=== PATIENT | female | born 1955 ===

== ENCOUNTER 2023-08-06 10:40 | Inpatient (IN) | payer OTHER ==
[2023-08-06] MEDS ORDERED: EPINEPHrine/PF 1 MG/1 ML (1:1,000) AMPULE ONE (10:50)
[2023-08-06] MEDS ORDERED: DEXAMETHASONE SOD PHOSPHATE 10 MG/1 ML VIAL ONE (10:50)
[2023-08-06] MEDS ORDERED: FAMOTIDINE 20 MG/50 ML IVPB 20 MG/50 ML MG IVPB ONE (10:53)
[2023-08-06] MEDS: EPINEPHrine 1:1,000 1,000 MCG in SODIUM CHLORIDE 249 ML IVPB SCH (11:00)
[2023-08-06] MEDS ORDERED: VANCOMYCIN 1 GRAM (PRE-DOCKED) 1,000 MG/250 ML BAG IVPB ONE (11:08)
[2023-08-06 11:16] LABS: HEMATOCRIT 34.1 % (32.4-45.2); HEMOGLOBIN 11.1 GM/dL (10.7-15.3); MCH 27.9 pg (25.7-33.7); MCHC 32.6 g/dl (32.0-36.0); MEAN CELL VOLUME 85.5 fl (80-96); MEAN PLT VOLUME 8.3 fl (7.5-11.1); PLATELET COUNT 313 10^3/uL (134-434); RBC 3.99 M/mm3 (3.60-5.2); RDW 15.6 % (11.6-15.6)
[2023-08-06 11:19] LABS: WHITE BLOOD COUNT 36.8 K/mm3 (4.0-10.0)
[2023-08-06 11:20] LABS: VENOUS BASE EXCESS -3.6 mmol/L (-2-2); VENOUS O2 SATURATION 67.5 % (70-80); VENOUS PCO2 34.4 mmHg (38-52); VENOUS PH 7.395 (7.310-7.410)
[2023-08-06] MEDS ORDERED: NOREPINEPHRINE 0.9 % NACL 8 MG/250 ML BAG IVPB ONE (11:20)
[2023-08-06 11:22] LABS: INR 1.74 (0.83-1.09); PROTHROMBIN TIME (PATIENT) 19.4 SEC (9.7-13.0)
[2023-08-06] MEDS: VANCOMYCIN 1,000 MG in DEXTROSE 5%-WATER - 250 ML IVPB ONE (11:29)
[2023-08-06 11:34] LABS: CHLORIDE 101 mmol/L (98-107); POTASSIUM 3.5 mmol/L (3.5-5.1); SODIUM 131 mmol/L (136-145)
[2023-08-06 11:37] LABS: CALCIUM 8.6 mg/dL (8.5-10.1)
[2023-08-06 11:38] LABS: ALBUMIN 1.7 g/dl (3.4-5.0); ANION GAP 9 mmol/L (4-13); BLOOD UREA NITROGEN 25.6 mg/dL (7-18); CO2 22 mmol/L (21-32); GLUCOSE,RANDOM 93 mg/dL (74-106)
[2023-08-06 11:41] LABS: CREATININE 1.5 mg/dL (0.55-1.3); SGOT/AST 54 U/L (15-37); SGPT/ALT 16 U/L (13-61)
[2023-08-06 11:42] LABS: TOT PROT 5.7 g/dl (6.4-8.2)
[2023-08-06 11:43] LABS: EPI CELLS 2 /uL (0-25.1); HYALINE CASTS 0 /uL (0-3.1); PH,URINE 6.5 (5.0-8.0); URINE APPEARANCE TURBID; URINE BACTERIA 606 /uL (0-1359); URINE BILIRUBIN NEGATIVE (NEGATIVE); URINE COLOR YELLOW; URINE GLUCOSE (UA) 3+ (NEGATIVE); URINE KETONE NEGATIVE (NEGATIVE); URINE LEUK ESTERASE 2+ (NEGATIVE); URINE NITRITE NEGATIVE (NEGATIVE); URINE PROTEIN 1+ (NEGATIVE); URINE UROBILINOGEN 0.2 mg/dL (0.2-1.0); URINE WBC 3223 /uL (0-25.8)
[2023-08-06 11:43] LABS: BILIRUBIN,TOTAL 0.6 mg/dL (0.2-1)
[2023-08-06 11:44] LABS: ALK PHOS 149 U/L (45-117)
[2023-08-06 12:03] LABS: LACTIC ACID 5.2 mmol/L (0.4-2.0)
[2023-08-06] MEDS: LACTATED RINGERS SOLUTION 1000 ML INFUS.BAG IV ONE (12:08)
[2023-08-06] MEDS: CEFEPIME HCL 1 GM VIAL (RESTRICTED TO ID) IVPB ONE (12:09)
[2023-08-06] MEDS ORDERED: CLINDAMYCIN 600MG PREMIX IVPB 600 MG/50 ML BAG IVPB ONE (12:29)
[2023-08-06] MEDS ORDERED: CEFEPIME 1 GM/100 ML BAG IVPB ONE (12:29)
[2023-08-06] MEDS ORDERED: ACETAMINOPHEN INJECTION 100 ML IVPB ONE (12:29)
[2023-08-06] MEDS ORDERED: ASPIRIN 300 MG SUPP.RECT RC ONE (12:30)
[2023-08-06] MEDS: CLINDAMYCIN 600MG PREMIX IVPB 600 MG/50 ML BAG IVPB ONE (12:48)
[2023-08-06] MEDS: ACETAMINOPHEN 1000 MG/100 ML BAG IVPB ONE (12:48)
[2023-08-06] MEDS: CEFEPIME 1 GM in DEXTROSE 5%-WATER - 100 ML IVPB ONE (12:48)
[2023-08-06] MEDS ORDERED: EPINEPHrine 1:10,000 (P-F SYR) 1 MG/10 ML DISP.SYRIN ONE ×2 (13:00→13:04)
[2023-08-06 13:21] LABS: PLATELET ESTIMATE ADEQUATE
[2023-08-06] MEDS: ASPIRIN 300 MG SUPP.RECT PR ONE (13:34)
[2023-08-06 13:58] LABS: URINE RBC 469 /uL (0-23.9); YEAST PRESENT (NEGATIVE)
[2023-08-06 14:09] LABS: LACTIC ACID 5.7 mmol/L (0.4-2.0)
[2023-08-06] MEDS: NOREPINEPHRINE BITARTRATE/D5W 8 MG/250 ML BAG IVPB SCH (14:15)
[2023-08-06] MEDS ORDERED: VASopressin 20 UNITS/ML VIAL IV ONE ×2 (15:09)
[2023-08-06] MEDS: SODIUM CHLORIDE 1,000 ML IV SCH (15:30)
[2023-08-06] MEDS: VASopressin 40 UNITS/100 ML BAG IV SCH (15:30)
[2023-08-06] MEDS: NOREPINEPHRINE BITARTRATE 4,000 MCG in DEXTROSE 5%-WATER - 496 ML IV SCH (15:39)
[2023-08-06 16:00] LABS: LACTIC ACID 4.4 mmol/L (0.4-2.0)
[2023-08-06] MEDS: INSULIN ASPART SLIDING SCALE (NOVOLOG) 1 VIAL SQ SCH (17:06)
[2023-08-06] MEDS ORDERED: PIPERACILLIN/TAZOB 2.25 GM 2.25 GM in DEXTROSE 5%-WATER - 50 ML IVPB SCH (18:45)
[2023-08-06] MEDS: TIOTROPIUM BROMIDE 2.5 MCG (SPIRIVA) RESPIMAT INHALER IH SCH (19:17)
[2023-08-06] MEDS: FLUDROCORTISONE ACETATE 0.1 MG TABLET (FP) PO SCH (19:17)
[2023-08-06] MEDS: PIPERACILLIN/TAZOB 2.25 GM 2.25 GM in DEXTROSE 5%-WATER - 50 ML IVPB SCH (19:20)
[2023-08-06 22:09] LABS: LACTIC ACID 2.3 mmol/L (0.4-2.0)
[2023-08-06] MEDS: CEFEPIME 1 GM in DEXTROSE 5%-WATER 100 ML IVPB SCH (22:13)
[2023-08-06] MEDS: HYDROCORTISONE SOD SUCCINATE 100 MG/2 ML VIAL IVPUSH SCH (22:13)
[2023-08-06] MEDS: MUPIROCIN 2% TOPICAL OINTMENT FOR DECOLONIZATION NS SCH (22:13)
[2023-08-06] MEDS: CHLORHEXIDINE GLUCONATE 4% CLEANSER FOR DECOLONIZATION TP SCH (22:14)
[2023-08-06] MEDS: HEPARIN NA (PORCINE) 5,000 UNITS/ML 1ML VIAL SQ SCH (22:14)
[2023-08-06] MEDS: ATORVASTATIN CA 80 MG TABLET (FP) PO SCH (22:14)
[2023-08-06] MEDS: BUDESONIDE/FORMETEROL FUMARATE 160/4.5 mcg INHALER IH SCH (22:14)
[2023-08-06] MEDS: TICAGRELOR 60 MG TABLET PO SCH (22:14)
[2023-08-06] MEDS: VANCOMYCIN/WATER FOR INJ (PEG) 1,000 MG/200 ML BAG IVPB SCH (22:24)
[2023-08-07 06:42] LABS: HEMATOCRIT 29.1 % (32.4-45.2); HEMOGLOBIN 9.4 GM/dL (10.7-15.3); MCH 27.4 pg (25.7-33.7); MCHC 32.3 g/dl (32.0-36.0); MEAN CELL VOLUME 84.6 fl (80-96); MEAN PLT VOLUME 8.8 fl (7.5-11.1); PLATELET COUNT 250 10^3/uL (134-434); RBC 3.44 M/mm3 (3.60-5.2); RDW 15.5 % (11.6-15.6)
[2023-08-07 06:53] LABS: INR 1.83 (0.83-1.09); PROTHROMBIN TIME (PATIENT) 20.3 SEC (9.7-13.0)
[2023-08-07 06:56] LABS: ACTIVATED PTT 32.7 SECONDS (25.2-36.5)
[2023-08-07 06:57] LABS: POTASSIUM 3.8 mmol/L (3.5-5.1)
[2023-08-07 06:59] LABS: ALBUMIN 1.6 g/dl (3.4-5.0); BLOOD UREA NITROGEN 31.8 mg/dL (7-18); CALCIUM 7.8 mg/dL (8.5-10.1)
[2023-08-07 07:00] LABS: MAGNESIUM 1.3 mg/dL (1.8-2.4)
[2023-08-07 07:02] LABS: CREATININE 1.6 mg/dL (0.55-1.3); PHOSPHOROUS 3.4 mg/dL (2.5-4.9)
[2023-08-07 07:04] LABS: TOT PROT 5.2 g/dl (6.4-8.2); WHITE BLOOD COUNT 54.1 K/mm3 (4.0-10.0)
[2023-08-07 07:09] LABS: BILIRUBIN,TOTAL 0.5 mg/dL (0.2-1)
[2023-08-07] MEDS: MAGNESIUM SULFATE IN WATER 2 GM/50 ML IVPB IVPB ONE (07:40)
[2023-08-07] MEDS: PANTOPRAZOLE SODIUM 40 MG VIAL IVPUSH SCH (09:51)
[2023-08-07] MEDS ORDERED: VANCOMYCIN 1,000 MG in DEXTROSE 5%-WATER - 250 ML IVPB SCH (10:00)
[2023-08-07] MEDS ORDERED: VANCOMYCIN/WATER FOR INJ (PEG) 1,000 MG/200 ML BAG IVPB SCH (11:00)
[2023-08-07] MEDS: ENOXAPARIN NA (PORCINE) 100 MG/1 ML DISP.SYRIN SQ SCH (12:37)
[2023-08-07] MEDS: MEROPENEM 1 GM in DEXTROSE 5%-WATER 100 ML IVPB SCH (12:38)
[2023-08-07] MEDS: HYDROCORTISONE SOD SUCCINATE 100 MG/2 ML VIAL IVPUSH SCH (12:38)
[2023-08-07] MEDS: ACETAMINOPHEN 1000 MG/100 ML BAG IVPB PRN (13:48)
[2023-08-07] MEDS: LACTATED RINGERS SOLUTION 1000 ML INFUS.BAG IV ONE (19:30)
[2023-08-08 06:01] LABS: HEMATOCRIT 28.6 % (32.4-45.2); HEMOGLOBIN 9.2 GM/dL (10.7-15.3); MCH 26.9 pg (25.7-33.7); MCHC 32.1 g/dl (32.0-36.0); MEAN CELL VOLUME 83.9 fl (80-96); MEAN PLT VOLUME 8.9 fl (7.5-11.1); PLATELET COUNT 215 10^3/uL (134-434); RBC 3.41 M/mm3 (3.60-5.2); RDW 15.2 % (11.6-15.6)
[2023-08-08 06:13] LABS: WHITE BLOOD COUNT 44.4 K/mm3 (4.0-10.0)
[2023-08-08 06:18] LABS: POTASSIUM 3.4 mmol/L (3.5-5.1)
[2023-08-08 06:22] LABS: ALBUMIN 1.7 g/dl (3.4-5.0); CALCIUM 7.7 mg/dL (8.5-10.1)
[2023-08-08 06:23] LABS: BLOOD UREA NITROGEN 37.3 mg/dL (7-18); MAGNESIUM 1.9 mg/dL (1.8-2.4)
[2023-08-08 06:26] LABS: CREATININE 1.4 mg/dL (0.55-1.3)
[2023-08-08 06:28] LABS: BILIRUBIN,TOTAL 0.5 mg/dL (0.2-1); TOT PROT 5.4 g/dl (6.4-8.2)
[2023-08-08] MEDS: POTASSIUM CHLORIDE TABS 20 MEQ TABLET.ER (FP) PO ONE (09:42)
[2023-08-08] MEDS: NIFEdipine E.R 60 MG TABLET PO SCH (09:46)
[2023-08-08] MEDS: oxyCODONE HCL 5 MG TABLET PO PRN (12:07)
[2023-08-08] MEDS: METOPROLOL TARTRATE 25 MG TABLET (FP) PO SCH (13:35)
[2023-08-08] MEDS ORDERED: INSULIN (NOVOLOG) ASPART 100 UNITS/ML 10ML VIAL ONE (17:23)
[2023-08-09 06:51] LABS: HEMATOCRIT 30.7 % (32.4-45.2); MCH 27.7 pg (25.7-33.7); MCHC 32.7 g/dl (32.0-36.0); MEAN CELL VOLUME 84.7 fl (80-96); MEAN PLT VOLUME 9.2 fl (7.5-11.1); PLATELET COUNT 221 10^3/uL (134-434); RBC 3.62 M/mm3 (3.60-5.2); RDW 15.3 % (11.6-15.6)
[2023-08-09 06:52] LABS: POTASSIUM 3.1 mmol/L (3.5-5.1)
[2023-08-09 06:53] LABS: ALBUMIN 1.9 g/dl (3.4-5.0); CALCIUM 8.1 mg/dL (8.5-10.1)
[2023-08-09 06:54] LABS: BLOOD UREA NITROGEN 32.6 mg/dL (7-18); MAGNESIUM 1.9 mg/dL (1.8-2.4)
[2023-08-09 06:57] LABS: PHOSPHOROUS 1.8 mg/dL (2.5-4.9)
[2023-08-09 06:58] LABS: BILIRUBIN,TOTAL 0.5 mg/dL (0.2-1); TOT PROT 5.6 g/dl (6.4-8.2)
[2023-08-09 07:00] LABS: CHOLESTEROL 93 mg/dL (50-200)
[2023-08-09 07:02] LABS: LDL CHOLESTEROL (ONLY SJRH) 47 mg/dL (5-100)
[2023-08-09 07:04] LABS: HDL CHOLESTEROL 16 mg/dL (40-60)
[2023-08-09 07:34] LABS: WHITE BLOOD COUNT 38.5 K/mm3 (4.0-10.0)
[2023-08-09] MEDS: NAPH,MB-DB/K PH,MBDB POWDER PACKET PO ONE (08:37)
[2023-08-09] MEDS: POTASSIUM CHLORIDE ORAL LIQUID 20 MEQ/15 ML PO ONE (08:37)
[2023-08-09] MEDS: METOPROLOL TARTRATE 50 MG TABLET (FP) PO SCH (09:43)
[2023-08-09] MEDS: dilTIAZem HCL 25 MG/5 ML - 5 ML VIAL IVPUSH ONE (11:58)
[2023-08-09 15:18] VITALS: BMI 32.1
[2023-08-09] MEDS: AMINO ACIDS/PROTEIN HYDROLYS 30 ML LIQUID.PKT PO SCH (17:40)
[2023-08-09] MEDS: ACETAMINOPHEN 325 MG TABLET (FP) PO PRN (20:45)
[2023-08-10] MEDS: METOPROLOL TARTRATE 50 MG TABLET (FP) PO SCH (09:53)
[2023-08-10] MEDS: ASCORBIC ACID 500 MG TABLET (FP) PO SCH (09:53)
[2023-08-10] MEDS: MULTIVITAMINS (DAILY MVI) TABLET (FP) PO SCH (09:54)
[2023-08-10] MEDS: ZINC SULFATE 220 MG CAPSULE (FP) PO SCH (09:54)
[2023-08-10] MEDS: LOSARTAN POTASSIUM 50 MG TABLET PO SCH (14:26)
[2023-08-10] MEDS: POTASSIUM CHLORIDE ORAL LIQUID 20 MEQ/15 ML PO ONE (14:26)
[2023-08-10] MEDS: hydrALAZINE HCL 25 MG TABLET (FP) PO SCH (14:26)
[2023-08-11 07:19] LABS: POTASSIUM 3.2 mmol/L (3.5-5.1)
[2023-08-11 07:23] LABS: ALBUMIN 1.8 g/dl (3.4-5.0); BLOOD UREA NITROGEN 29.1 mg/dL (7-18); CALCIUM 7.8 mg/dL (8.5-10.1); MAGNESIUM 1.5 mg/dL (1.8-2.4)
[2023-08-11 07:26] LABS: CREATININE 0.8 mg/dL (0.55-1.3); HEMATOCRIT 29.8 % (32.4-45.2); HEMOGLOBIN 9.7 GM/dL (10.7-15.3); MCH 27.6 pg (25.7-33.7); MCHC 32.3 g/dl (32.0-36.0); MEAN CELL VOLUME 85.4 fl (80-96); MEAN PLT VOLUME 10.2 fl (7.5-11.1); PLATELET COUNT 216 10^3/uL (134-434); RDW 15.9 % (11.6-15.6); WHITE BLOOD COUNT 19.3 K/mm3 (4.0-10.0)
[2023-08-11 07:28] LABS: BILIRUBIN,TOTAL 0.9 mg/dL (0.2-1); TOT PROT 5.2 g/dl (6.4-8.2)
[2023-08-11] MEDS: MAGNESIUM SULF 50% (8.12 MEQ/2 ML-1 GM VIAL) IVPB ONE (08:59)
[2023-08-11] MEDS: POTASSIUM CHLORIDE TABS 20 MEQ TABLET.ER (FP) PO ONE (08:59)
[2023-08-11] MEDS: POTASSIUM CHLORIDE ORAL LIQUID 20 MEQ/15 ML PO ONE (12:00)
[2023-08-11] MEDS: KCL 10 MEQ IVPB 10 MEQ/100 ML INFUS.BAG IVPB SCH (12:30)
[2023-08-11] MEDS: hydrALAZINE HCL 20 MG/ML VIAL IVPUSH PRN (14:29)
[2023-08-11] MEDS ORDERED: METOPROLOL TARTRATE 5 MG/5 ML VIAL ONE (14:54)
[2023-08-11] MEDS: METOPROLOL TARTRATE 5 MG/5 ML VIAL IVPUSH PRN (14:58)
[2023-08-11] MEDS: FUROSEMIDE 40 MG/4 ML INJECTABLE VIAL IVPUSH ONE (16:38)
[2023-08-11] MEDS: ATORVASTATIN CA 80 MG TABLET (FP) PO SCH (21:18)
[2023-08-11] MEDS: hydrALAZINE HCL 25 MG TABLET (FP) PO SCH (21:18)
[2023-08-11] MEDS: oxyCODONE HCL 5 MG TABLET PO PRN (21:18)
[2023-08-11] MEDS: TICAGRELOR 60 MG TABLET PO SCH (21:20)
[2023-08-11] MEDS: ACETAMINOPHEN 325 MG TABLET (FP) PO PRN (21:20)
[2023-08-11] MEDS: LOSARTAN POTASSIUM 50 MG TABLET PO SCH (21:22)
[2023-08-11] MEDS: METOPROLOL TARTRATE 50 MG TABLET (FP) PO SCH (21:22)
[2023-08-11] MEDS: MEROPENEM 1 GM in DEXTROSE 5%-WATER 100 ML IVPB SCH (21:23)
[2023-08-11] MEDS: ENOXAPARIN NA (PORCINE) 100 MG/1 ML DISP.SYRIN SQ SCH (21:23)
[2023-08-11] MEDS: ONDANSETRON 4 MG/2 ML VIAL IVPUSH ONE (21:39)
[2023-08-12] MEDS: INSULIN ASPART SLIDING SCALE (NOVOLOG) 1 VIAL SQ SCH (01:07)
[2023-08-12] MEDS: BUDESONIDE/FORMETEROL FUMARATE 160/4.5 mcg INHALER IH SCH (01:08)
[2023-08-12 06:49] LABS: HEMATOCRIT 30.4 % (32.4-45.2); MCHC 32.8 g/dl (32.0-36.0); MEAN CELL VOLUME 85.5 fl (80-96); MEAN PLT VOLUME 9.6 fl (7.5-11.1); PLATELET COUNT 284 10^3/uL (134-434); RBC 3.55 M/mm3 (3.60-5.2); RDW 15.7 % (11.6-15.6); WHITE BLOOD COUNT 22.8 K/mm3 (4.0-10.0)
[2023-08-12 07:13] LABS: POTASSIUM 3.8 mmol/L (3.5-5.1)
[2023-08-12 07:15] LABS: CALCIUM 7.9 mg/dL (8.5-10.1)
[2023-08-12 07:16] LABS: ALBUMIN 2.1 g/dl (3.4-5.0); BLOOD UREA NITROGEN 25.1 mg/dL (7-18); MAGNESIUM 1.8 mg/dL (1.8-2.4)
[2023-08-12 07:19] LABS: CREATININE 0.6 mg/dL (0.55-1.3)
[2023-08-12 07:20] LABS: TOT PROT 5.8 g/dl (6.4-8.2)
[2023-08-12 07:22] LABS: BILIRUBIN,TOTAL 0.9 mg/dL (0.2-1)
[2023-08-12] MEDS: AMINO ACIDS/PROTEIN HYDROLYS 30 ML LIQUID.PKT PO SCH (10:00)
[2023-08-12 10:03] LABS: ANISOCYTOSIS 0; MACROCYTOSIS 0; PLATELET ESTIMATE ADEQUATE; TARGET CELLS 2+
[2023-08-12] MEDS: TIOTROPIUM BROMIDE 2.5 MCG (SPIRIVA) RESPIMAT INHALER IH SCH (10:07)
[2023-08-12] MEDS: ZINC SULFATE 220 MG CAPSULE (FP) PO SCH (10:08)
[2023-08-12] MEDS: MULTIVITAMINS (DAILY MVI) TABLET (FP) PO SCH (10:12)
[2023-08-12] MEDS: ASCORBIC ACID 500 MG TABLET (FP) PO SCH (10:12)
[2023-08-12] MEDS: PANTOPRAZOLE SODIUM 40 MG VIAL IVPUSH SCH (10:45)
[2023-08-12] MEDS: NAPH,MB-DB/K PH,MBDB POWDER PACKET PO ONE (14:58)
[2023-08-14 10:39] LABS: HEMATOCRIT 31.8 % (32.4-45.2); HEMOGLOBIN 10.1 GM/dL (10.7-15.3); MCH 27.7 pg (25.7-33.7); MCHC 31.7 g/dl (32.0-36.0); MEAN CELL VOLUME 87.6 fl (80-96); MEAN PLT VOLUME 9.2 fl (7.5-11.1); PLATELET COUNT 372 10^3/uL (134-434); RBC 3.63 M/mm3 (3.60-5.2); RDW 16.2 % (11.6-15.6); WHITE BLOOD COUNT 19.7 K/mm3 (4.0-10.0)
[2023-08-14 10:55] LABS: POTASSIUM 3.5 mmol/L (3.5-5.1)
[2023-08-14 10:57] LABS: CALCIUM 8.1 mg/dL (8.5-10.1)
[2023-08-14 10:58] LABS: BLOOD UREA NITROGEN 28.3 mg/dL (7-18)
[2023-08-14 11:01] LABS: CREATININE 0.8 mg/dL (0.55-1.3)
[2023-08-14 11:02] LABS: TOT PROT 5.8 g/dl (6.4-8.2)
[2023-08-14 11:03] LABS: BILIRUBIN,TOTAL 0.7 mg/dL (0.2-1)
[2023-08-14 11:07] LABS: ANISOCYTOSIS 1+; MACROCYTOSIS 1+
[2023-08-14] MEDS: metroNIDAZOLE 250 MG TABLET PO SCH (13:59)
[2023-08-16] MEDS: FUROSEMIDE 40 MG/4 ML INJECTABLE VIAL IVPUSH ONE (11:32)
[2023-08-16] MEDS ORDERED: dilTIAZem HCL 60 MG TABLET PO SCH (12:00)
[2023-08-16] MEDS ORDERED: dilTIAZem HCL 30 MG TABLET PO SCH (12:00)
[2023-08-16] MEDS: dilTIAZem HCL 60 MG TABLET PO SCH (12:03)
[2023-08-16 12:36] LABS: HEMATOCRIT 31.9 % (32.4-45.2); HEMOGLOBIN 10.4 GM/dL (10.7-15.3); MCHC 32.5 g/dl (32.0-36.0); MEAN CELL VOLUME 86.1 fl (80-96); MEAN PLT VOLUME 8.7 fl (7.5-11.1); PLATELET COUNT 485 10^3/uL (134-434); RDW 16.6 % (11.6-15.6); WHITE BLOOD COUNT 15.5 K/mm3 (4.0-10.0)
[2023-08-16 13:01] LABS: POTASSIUM 3.9 mmol/L (3.5-5.1)
[2023-08-16 13:02] LABS: CALCIUM 8.1 mg/dL (8.5-10.1)
[2023-08-16 13:03] LABS: BLOOD UREA NITROGEN 26.1 mg/dL (7-18); MAGNESIUM 1.7 mg/dL (1.8-2.4)
[2023-08-16 13:06] LABS: CREATININE 0.7 mg/dL (0.55-1.3)
[2023-08-16 13:12] LABS: ANISOCYTOSIS 1+; MACROCYTOSIS 1+
[2023-08-16 14:15] VITALS: BP 112/85; PULSE 104; RESP 24; TEMP 97.6
== END 2023-08-16 14:24 | DRG 871 ==
LOC: JER 10:40 → JERBED 13:09 → JICU 18:35 → J2W 08-11 11:34
PROVIDERS: ADMIT Internal Medicine; ATTEND Internal Medicine
PROC: 05HN33Z Insertion of Infusion Device into Left Internal Jugular Vein, Percutaneous Approach (ICD-10-PCS; principal; 2023-08-06)
PROC: 05HF33Z Insertion of Infusion Device into Left Cephalic Vein, Percutaneous Approach (ICD-10-PCS; 2023-08-10)
DX: A41.50 Gram-negative sepsis, unspecified (principal); G92.8 Other toxic encephalopathy; R65.21 Severe sepsis with septic shock; L89.154 Pressure ulcer of sacral region, stage 4; E87.20 Acidosis, unspecified; E87.1 Hypo-osmolality and hyponatremia; I24.89 Other forms of acute ischemic heart disease; N17.9 Acute kidney failure, unspecified; I48.91 Unspecified atrial fibrillation; G47.33 Obstructive sleep apnea (adult) (pediatric); R53.1 Weakness; F32.9 Major depressive disorder, single episode, unspecified; K21.9 Gastro-esophageal reflux disease without esophagitis; J44.9 Chronic obstructive pulmonary disease, unspecified; E11.9 Type 2 diabetes mellitus without complications; I10 Essential (primary) hypertension; E66.9 Obesity, unspecified; Z68.31 Body mass index [BMI] 31.0-31.9, adult; Z88.0 Allergy status to penicillin; Z86.73 Personal history of transient ischemic attack (TIA), and cerebral infarction without residual deficits
CPT/HCPCS: 0241U-QW; 36415; 70450-TC; 71045-TC-FY; 74176-TC; 80048; 80053; 80061; 81003; 82803; 82962; 83036; 83605; 83735; 83880; 84100; 84443; 84484; 85025; 85027; 85610; 85730; 86850; 86900; 86901; 87040; 87076; 87086; 93005; 93010; 93306-TC; 99285-25; J0131; J1644; J3490

== ENCOUNTER 2023-10-24 07:31 | Inpatient (IN) | payer OTHER ==
[2023-10-24 08:00] LABS: VENOUS BASE EXCESS 1.7 mmol/L (-2-2); VENOUS O2 SATURATION 28.6 % (70-80); VENOUS PCO2 45.8 mmHg (38-52); VENOUS PH 7.389 (7.310-7.410)
[2023-10-24 08:17] LABS: INR 1.76 (0.83-1.09); PROTHROMBIN TIME (PATIENT) 19.9 SEC (9.7-13.0)
[2023-10-24 08:18] LABS: HEMATOCRIT 28.5 % (32.4-45.2); HEMOGLOBIN 8.8 GM/dL (10.7-15.3); MCH 25.8 pg (25.7-33.7); MCHC 30.9 g/dl (32.0-36.0); MEAN CELL VOLUME 83.4 fl (80-96); PLATELET COUNT 694 10^3/uL (134-434); RBC 3.42 M/mm3 (3.60-5.2); WHITE BLOOD COUNT 26.8 K/mm3 (4.0-10.0)
[2023-10-24] MEDS ORDERED: VANCOMYCIN 1 GRAM (PRE-DOCKED) 1,000 MG/250 ML BAG IVPB ONE (08:20)
[2023-10-24] MEDS ORDERED: PANTOPRAZOLE SODIUM 40 MG/100 ML BAG IVPB ONE (08:20)
[2023-10-24] MEDS ORDERED: PANTOPRAZOLE SODIUM 40 MG VIAL ONE (08:21)
[2023-10-24] MEDS ORDERED: CEFEPIME 1 GM/100 ML BAG IVPB ONE (08:21)
[2023-10-24 08:25] LABS: POTASSIUM 5.1 mmol/L (3.5-5.1)
[2023-10-24 08:27] LABS: ALBUMIN 1.3 g/dl (3.4-5.0); BLOOD UREA NITROGEN 15.9 mg/dL (7-18); CALCIUM 8.5 mg/dL (8.5-10.1); MAGNESIUM 1.8 mg/dL (1.8-2.4)
[2023-10-24 08:30] LABS: CREATININE 0.8 mg/dL (0.55-1.3)
[2023-10-24 08:32] LABS: BILIRUBIN,TOTAL 0.6 mg/dL (0.2-1); TOT PROT 5.3 g/dl (6.4-8.2)
[2023-10-24] MEDS: PANTOPRAZOLE SODIUM 40 MG VIAL IVPUSH ONE (08:50)
[2023-10-24 08:51] LABS: ANISOCYTOSIS 0; MACROCYTOSIS 0
[2023-10-24] MEDS: CEFEPIME HCL 1 GM VIAL (RESTRICTED TO ID) IVPB ONE (08:53)
[2023-10-24 08:59] LABS: LACTIC ACID 3.3 mmol/L (0.4-2.0)
[2023-10-24] MEDS: SODIUM CHLORIDE 0.9% 500 ML INFUS.BAG IV ONE (09:00)
[2023-10-24] MEDS: VANCOMYCIN 1,000 MG in DEXTROSE 5%-WATER - 250 ML IVPB ONE (09:20)
[2023-10-24 10:26] LABS: EPI CELLS 3 /uL (0-25.1); HYALINE CASTS 2 /uL (0-3.1); URINE APPEARANCE TURBID; URINE BACTERIA 197 /uL (0-1359); URINE BILIRUBIN NEGATIVE (NEGATIVE); URINE COLOR YELLOW; URINE GLUCOSE (UA) NEGATIVE (NEGATIVE); URINE KETONE NEGATIVE (NEGATIVE); URINE LEUK ESTERASE 3+ (NEGATIVE); URINE NITRITE NEGATIVE (NEGATIVE); URINE PROTEIN 1+ (NEGATIVE); URINE UROBILINOGEN 0.2 mg/dL (0.2-1.0); URINE WBC 5552 /uL (0-25.8)
[2023-10-24 10:48] LABS: URINE CRYSTALS NONE SEEN /hpf; URINE RBC 47 /uL (0-23.9); YEAST PRESENT (NEGATIVE)
[2023-10-24] MEDS: PANTOPRAZOLE SODIUM 160 MG in SODIUM CHLORIDE 290 ML IVPB SCH (12:33)
[2023-10-24 13:09] LABS: HEMATOCRIT 26.1 % (32.4-45.2); HEMOGLOBIN 8.5 GM/dL (10.7-15.3); MCH 27.3 pg (25.7-33.7); MCHC 32.6 g/dl (32.0-36.0); MEAN CELL VOLUME 83.8 fl (80-96); MEAN PLT VOLUME 7.7 fl (7.5-11.1); PLATELET COUNT 543 10^3/uL (134-434); RBC 3.12 M/mm3 (3.60-5.2); WHITE BLOOD COUNT 29.9 K/mm3 (4.0-10.0)
[2023-10-24 13:39] LABS: ANISOCYTOSIS 0; MACROCYTOSIS 0
[2023-10-24] MEDS ORDERED: MEROPENEM 1 GM in DEXTROSE 5%-WATER 100 ML IVPB SCH (22:15)
[2023-10-24] MEDS: ACETAMINOPHEN 325 MG TABLET (FP) PO PRN (22:39)
[2023-10-24] MEDS: ATORVASTATIN CA 80 MG TABLET (FP) PO SCH (22:39)
[2023-10-24] MEDS: METOPROLOL TARTRATE 50 MG TABLET (FP) PO SCH (22:39)
[2023-10-24] MEDS: CEFEPIME 2 GM in DEXTROSE 5%-WATER 100 ML IVPB SCH (23:00)
[2023-10-24] MEDS: MEROPENEM 1 GM in DEXTROSE 5%-WATER 100 ML IVPB SCH (23:01)
[2023-10-25] MEDS: BUDESONIDE/FORMETEROL FUMARATE 160/4.5 mcg INHALER IH SCH ×2 (00:37→23:00)
[2023-10-25] MEDS: dilTIAZem HCL 60 MG TABLET PO SCH ×2 (00:38→18:00)
[2023-10-25] MEDS: CEFEPIME HCL 2 GM VIAL (RESTRICTED TO ID) IVPB SCH (00:41)
[2023-10-25] MEDS ORDERED: MEROPENEM 1 GM VIAL (RESTRICTED TO ID) IVPB ONE (06:08)
[2023-10-25 07:50] LABS: HEMATOCRIT 30.7 % (32.4-45.2); HEMOGLOBIN 10.1 GM/dL (10.7-15.3); MCH 27.8 pg (25.7-33.7); MCHC 32.9 g/dl (32.0-36.0); MEAN CELL VOLUME 84.5 fl (80-96); MEAN PLT VOLUME 8.1 fl (7.5-11.1); PLATELET COUNT 542 10^3/uL (134-434); RBC 3.63 M/mm3 (3.60-5.2); RDW 15.6 % (11.6-15.6)
[2023-10-25 07:55] LABS: POTASSIUM 4.3 mmol/L (3.5-5.1)
[2023-10-25 07:57] LABS: ALBUMIN 1.4 g/dl (3.4-5.0); BLOOD UREA NITROGEN 37.8 mg/dL (7-18); CALCIUM 8.1 mg/dL (8.5-10.1)
[2023-10-25 08:02] LABS: BILIRUBIN,TOTAL 0.6 mg/dL (0.2-1); TOT PROT 5.2 g/dl (6.4-8.2)
[2023-10-25] MEDS: VANCOMYCIN/WATER FOR INJ (PEG) 1,000 MG/200 ML BAG IVPB SCH (08:33)
[2023-10-25] MEDS: AMINO ACIDS/PROTEIN HYDROLYS 30 ML LIQUID.PKT PO SCH ×2 (08:43→18:00)
[2023-10-25 09:20] LABS: PLATELET ESTIMATE INCREASED
[2023-10-25] MEDS ORDERED: FUROSEMIDE 40 MG TABLET (FP) PO SCH (10:00)
[2023-10-25] MEDS: TIOTROPIUM BROMIDE 2.5 MCG (SPIRIVA) RESPIMAT INHALER IH SCH (11:11)
[2023-10-25] MEDS ORDERED: BUPIVACAINE HCL/PF 0.5% (5MG/ML) 10 ML VIAL ONE ×2 (12:18→19:00)
[2023-10-25] MEDS ORDERED: LIDOCAINE HCL 1%, 10 MG/ML (20ML VIAL) ONE ×2 (12:18→19:00)
[2023-10-25 13:03] VITALS: BMI 23.6
[2023-10-25] MEDS: MEROPENEM 1 GM in DEXTROSE 5%-WATER 100 ML IVPB SCH (13:06)
[2023-10-25] MEDS: VANCOMYCIN 1,000 MG in DEXTROSE 5%-WATER - 250 ML IVPB SCH (13:06)
[2023-10-25 13:21] LABS: HEMATOCRIT 26.9 % (32.4-45.2); HEMOGLOBIN 8.9 GM/dL (10.7-15.3); MCH 27.7 pg (25.7-33.7); MCHC 33.1 g/dl (32.0-36.0); MEAN CELL VOLUME 83.7 fl (80-96); MEAN PLT VOLUME 8.3 fl (7.5-11.1); PLATELET COUNT 489 10^3/uL (134-434); RBC 3.22 M/mm3 (3.60-5.2); RDW 16.4 % (11.6-15.6)
[2023-10-25] MEDS ORDERED: CEFEPIME 2 GM in DEXTROSE 5%-WATER 100 ML IVPB ONE ×2 (13:30→16:57)
[2023-10-25] MEDS: CEFEPIME 1 GM in DEXTROSE 5%-WATER 100 ML IVPB SCH (13:38)
[2023-10-25] MEDS: CEFEPIME HCL 1 GM VIAL (RESTRICTED TO ID) IVPB SCH (13:40)
[2023-10-25] MEDS ORDERED: CEFEPIME 2 GM in DEXTROSE 5%-WATER 100 ML IVPB SCH (13:45)
[2023-10-25] MEDS ORDERED: PROPOFOL 20 ML ONE ×2 (14:23→19:09)
[2023-10-25] MEDS ORDERED: METOCLOPRAMIDE HCL INJECTION 10 MG/2 ML VIAL ONE (14:43)
[2023-10-25] MEDS ORDERED: ONDANSETRON 4 MG/2 ML VIAL ONE (14:43)
[2023-10-25] MEDS ORDERED: VASopressin 20 UNITS/ML VIAL IV ONE (14:49)
[2023-10-25] MEDS ORDERED: ONDANSETRON 4 MG/2 ML VIAL IVPUSH PRN ×3 (15:52→21:18)
[2023-10-25] MEDS ORDERED: LACTATED RINGERS SOLUTION 1,000 ML IV SCH ×2 (16:00→16:57)
[2023-10-25] MEDS ORDERED: DEXTROSE 5%-NORMAL SALINE 1,000 ML IV SCH (16:30)
[2023-10-25] MEDS ORDERED: ACETAMINOPHEN 325 MG TABLET (FP) PO PRN (16:57)
[2023-10-25] MEDS ORDERED: MIDAZOLAM HCL 2 MG/2 ML SINGLE DOSE VIAL ONE (19:10)
[2023-10-25] MEDS ORDERED: KETAMINE HCL 200 MG/20 ML VIAL ONE (19:10)
[2023-10-25 21:18] LABS: HEMATOCRIT 19.9 % (32.4-45.2); HEMOGLOBIN 6.5 GM/dL (10.7-15.3); MCH 28.1 pg (25.7-33.7); MCHC 32.9 g/dl (32.0-36.0); MEAN CELL VOLUME 85.4 fl (80-96); MEAN PLT VOLUME 7.7 fl (7.5-11.1); PLATELET COUNT 388 10^3/uL (134-434); RBC 2.33 M/mm3 (3.60-5.2); RDW 16.2 % (11.6-15.6); WHITE BLOOD COUNT 23.7 K/mm3 (4.0-10.0)
[2023-10-25] MEDS ORDERED: oxyCODONE HCL 5 MG TABLET PO PRN (21:18)
[2023-10-25] MEDS ORDERED: CEFEPIME 1 GM in DEXTROSE 5%-WATER 100 ML IVPB SCH (21:45)
[2023-10-25] MEDS ORDERED: BUDESONIDE/FORMETEROL FUMARATE 160/4.5 mcg INHALER IH SCH (22:00)
[2023-10-25] MEDS ORDERED: METOPROLOL TARTRATE 50 MG TABLET (FP) PO SCH (22:00)
[2023-10-25] MEDS ORDERED: ATORVASTATIN CA 80 MG TABLET (FP) PO SCH (22:00)
[2023-10-25] MEDS: ATORVASTATIN CA 80 MG TABLET (FP) PO SCH (23:00)
[2023-10-25] MEDS: LACTATED RINGERS SOLUTION 1,000 ML IV SCH (23:00)
[2023-10-26] MEDS: METOPROLOL TARTRATE 50 MG TABLET (FP) PO SCH (00:01)
[2023-10-26] MEDS: dilTIAZem HCL 60 MG TABLET PO SCH (00:07)
[2023-10-26] MEDS: CEFEPIME 1 GM in DEXTROSE 5%-WATER 100 ML IVPB SCH (00:11)
[2023-10-26] MEDS ORDERED: PANTOPRAZOLE SODIUM 160 MG in SODIUM CHLORIDE 290 ML IVPB SCH (02:30)
[2023-10-26] MEDS: PANTOPRAZOLE SODIUM 160 MG in SODIUM CHLORIDE 290 ML IVPB SCH (03:00)
[2023-10-26 07:43] LABS: HEMATOCRIT 31.6 % (32.4-45.2); HEMOGLOBIN 10.4 GM/dL (10.7-15.3); MCH 28.5 pg (25.7-33.7); MCHC 32.9 g/dl (32.0-36.0); MEAN CELL VOLUME 86.6 fl (80-96); MEAN PLT VOLUME 8.4 fl (7.5-11.1); PLATELET COUNT 426 10^3/uL (134-434); RBC 3.65 M/mm3 (3.60-5.2); RDW 15.7 % (11.6-15.6); WHITE BLOOD COUNT 20.8 K/mm3 (4.0-10.0)
[2023-10-26 07:51] LABS: POTASSIUM 4.7 mmol/L (3.5-5.1)
[2023-10-26 07:53] LABS: CALCIUM 8.6 mg/dL (8.5-10.1)
[2023-10-26 07:57] LABS: CREATININE 0.8 mg/dL (0.55-1.3)
[2023-10-26] MEDS: AMINO ACIDS/PROTEIN HYDROLYS 30 ML LIQUID.PKT PO SCH (08:20)
[2023-10-26] MEDS ORDERED: TIOTROPIUM BROMIDE 2.5 MCG (SPIRIVA) RESPIMAT INHALER IH SCH (10:00)
[2023-10-26] MEDS: TIOTROPIUM BROMIDE 2.5 MCG (SPIRIVA) RESPIMAT INHALER IH SCH (10:17)
[2023-10-26 11:49] LABS: HEMATOCRIT 26.6 % (32.4-45.2); HEMOGLOBIN 8.8 GM/dL (10.7-15.3); MCH 28.1 pg (25.7-33.7); MCHC 33.2 g/dl (32.0-36.0); MEAN CELL VOLUME 84.8 fl (80-96); MEAN PLT VOLUME 7.6 fl (7.5-11.1); PLATELET COUNT 376 10^3/uL (134-434); RBC 3.14 M/mm3 (3.60-5.2); RDW 15.8 % (11.6-15.6); WHITE BLOOD COUNT 23.4 K/mm3 (4.0-10.0)
[2023-10-26 18:37] LABS: HEMATOCRIT 26.8 % (32.4-45.2); HEMOGLOBIN 8.8 GM/dL (10.7-15.3); MCH 28.4 pg (25.7-33.7); MCHC 32.9 g/dl (32.0-36.0); MEAN CELL VOLUME 86.1 fl (80-96); MEAN PLT VOLUME 8.1 fl (7.5-11.1); PLATELET COUNT 373 10^3/uL (134-434); RBC 3.11 M/mm3 (3.60-5.2); RDW 16.2 % (11.6-15.6); WHITE BLOOD COUNT 26.5 K/mm3 (4.0-10.0)
[2023-10-26 21:08] LABS: HEMATOCRIT 23.6 % (32.4-45.2); HEMOGLOBIN 7.9 GM/dL (10.7-15.3); MCH 28.2 pg (25.7-33.7); MCHC 33.4 g/dl (32.0-36.0); MEAN CELL VOLUME 84.3 fl (80-96); MEAN PLT VOLUME 7.6 fl (7.5-11.1); PLATELET COUNT 379 10^3/uL (134-434)
[2023-10-26] MEDS: ACETAMINOPHEN 500 MG TABLET (FP) PO PRN (22:06)
[2023-10-27 07:50] LABS: POTASSIUM 3.8 mmol/L (3.5-5.1)
[2023-10-27 07:58] LABS: CALCIUM 8.3 mg/dL (8.5-10.1)
[2023-10-27 08:02] LABS: CREATININE 0.6 mg/dL (0.55-1.3)
[2023-10-27 08:25] LABS: HEMATOCRIT 22.6 % (32.4-45.2); HEMOGLOBIN 7.6 GM/dL (10.7-15.3); MCH 28.2 pg (25.7-33.7); MCHC 33.4 g/dl (32.0-36.0); MEAN CELL VOLUME 84.5 fl (80-96); MEAN PLT VOLUME 8.2 fl (7.5-11.1); PLATELET COUNT 384 10^3/uL (134-434); RBC 2.68 M/mm3 (3.60-5.2); RDW 16.1 % (11.6-15.6); WHITE BLOOD COUNT 20.3 K/mm3 (4.0-10.0)
[2023-10-27 12:25] LABS: HEMATOCRIT 21.7 % (32.4-45.2); HEMOGLOBIN 7.1 GM/dL (10.7-15.3); MCH 28.1 pg (25.7-33.7); MCHC 32.7 g/dl (32.0-36.0); MEAN PLT VOLUME 7.8 fl (7.5-11.1); PLATELET COUNT 338 10^3/uL (134-434); RBC 2.52 M/mm3 (3.60-5.2); RDW 16.5 % (11.6-15.6); WHITE BLOOD COUNT 18.9 K/mm3 (4.0-10.0)
[2023-10-28 07:45] LABS: BASO % 0.3 % (0-2.0); EOS % 0.9 % (0-4.5); HEMATOCRIT 21.4 % (32.4-45.2); HEMOGLOBIN 7.1 GM/dL (10.7-15.3); MCH 28.4 pg (25.7-33.7); MCHC 32.9 g/dl (32.0-36.0); MEAN CELL VOLUME 86.3 fl (80-96); MEAN PLT VOLUME 8.4 fl (7.5-11.1); MONO % 6.9 % (3.8-10.2); NEUT % 78.9 % (42.8-82.8); PLATELET COUNT 337 10^3/uL (134-434); RBC 2.48 M/mm3 (3.60-5.2); RDW 16.4 % (11.6-15.6); WHITE BLOOD COUNT 17.4 K/mm3 (4.0-10.0)
[2023-10-28 07:59] LABS: POTASSIUM 3.6 mmol/L (3.5-5.1)
[2023-10-28 08:02] LABS: ALBUMIN 1.4 g/dl (3.4-5.0); BLOOD UREA NITROGEN 28.6 mg/dL (7-18)
[2023-10-28 08:05] LABS: CREATININE 0.5 mg/dL (0.55-1.3)
[2023-10-28 08:07] LABS: BILIRUBIN,TOTAL 0.4 mg/dL (0.2-1); TOT PROT 4.6 g/dl (6.4-8.2)
[2023-10-28] MEDS: dilTIAZem HCL 60 MG TABLET PO SCH (11:12)
[2023-10-28 13:48] LABS: HEMATOCRIT 24.5 % (32.4-45.2); HEMOGLOBIN 8.1 GM/dL (10.7-15.3); MCH 28.8 pg (25.7-33.7); MCHC 33.1 g/dl (32.0-36.0); MEAN CELL VOLUME 86.9 fl (80-96); MEAN PLT VOLUME 8.4 fl (7.5-11.1); PLATELET COUNT 315 10^3/uL (134-434); RBC 2.82 M/mm3 (3.60-5.2); WHITE BLOOD COUNT 20.8 K/mm3 (4.0-10.0)
[2023-10-28 14:11] LABS: ANISOCYTOSIS 0; MACROCYTOSIS 0
[2023-10-29 01:07] LABS: HEMATOCRIT 27.3 % (32.4-45.2); HEMOGLOBIN 9.1 GM/dL (10.7-15.3); MCH 28.7 pg (25.7-33.7); MCHC 33.3 g/dl (32.0-36.0); MEAN CELL VOLUME 85.9 fl (80-96); PLATELET COUNT 319 10^3/uL (134-434); RBC 3.18 M/mm3 (3.60-5.2); WHITE BLOOD COUNT 18.5 K/mm3 (4.0-10.0)
[2023-10-29 08:53] LABS: HEMATOCRIT 28.9 % (32.4-45.2); HEMOGLOBIN 9.9 GM/dL (10.7-15.3); MCH 29.4 pg (25.7-33.7); MCHC 34.2 g/dl (32.0-36.0); MEAN CELL VOLUME 85.7 fl (80-96); MEAN PLT VOLUME 8.8 fl (7.5-11.1); PLATELET COUNT 330 10^3/uL (134-434); RBC 3.38 M/mm3 (3.60-5.2); WHITE BLOOD COUNT 18.4 K/mm3 (4.0-10.0)
[2023-10-29 08:56] LABS: HEMOGLOBIN 9.9 GM/dL (10.7-15.3); MCH 29.4 pg (25.7-33.7); MCHC 34.2 g/dl (32.0-36.0); MEAN PLT VOLUME 8.7 fl (7.5-11.1); PLATELET COUNT 333 10^3/uL (134-434); RBC 3.37 M/mm3 (3.60-5.2); RDW 16.1 % (11.6-15.6); WHITE BLOOD COUNT 18.3 K/mm3 (4.0-10.0)
[2023-10-29 09:02] LABS: INR 1.34 (0.83-1.09)
[2023-10-29 09:18] LABS: POTASSIUM 3.4 mmol/L (3.5-5.1)
[2023-10-29 09:22] LABS: ALBUMIN 1.4 g/dl (3.4-5.0); BLOOD UREA NITROGEN 18.4 mg/dL (7-18)
[2023-10-29 09:25] LABS: CREATININE 0.3 mg/dL (0.55-1.3)
[2023-10-29 09:27] LABS: BILIRUBIN,TOTAL 0.7 mg/dL (0.2-1); TOT PROT 4.8 g/dl (6.4-8.2)
[2023-10-29 09:35] LABS: ANISOCYTOSIS 0; HELMET CELLS 0; HOWELL-JOLLY BODIES 0; MACROCYTOSIS 0; OVALOCYTE 0; ROULEAU 0; SICKELED CELLS 0; TARGET CELLS 0; TEAR DROP CELLS 0; TOXIC GRANULATION 0
[2023-10-29] MEDS: MULTIVITAMINS (DAILY MVI) TABLET (FP) PO SCH (10:28)
[2023-10-29] MEDS: ASCORBIC ACID 500 MG TABLET (FP) PO SCH (10:53)
[2023-10-29 12:06] LABS: HEMATOCRIT 30.5 % (32.4-45.2); HEMOGLOBIN 10.3 GM/dL (10.7-15.3); MCHC 33.6 g/dl (32.0-36.0); MEAN CELL VOLUME 86.3 fl (80-96); MEAN PLT VOLUME 8.2 fl (7.5-11.1); PLATELET COUNT 336 10^3/uL (134-434); RBC 3.54 M/mm3 (3.60-5.2); WHITE BLOOD COUNT 19.5 K/mm3 (4.0-10.0)
[2023-10-29] MEDS: METOCLOPRAMIDE HCL INJECTION 10 MG/2 ML VIAL IVPB ONE (12:25)
[2023-10-29] MEDS: IOHEXOL 300 MG/ML INFUS..BTL IV ONE (17:00)
[2023-10-29] MEDS: LACTATED RINGERS SOLUTION 1,000 ML IV SCH (18:37)
[2023-10-30] MEDS: POTASSIUM CHLORIDE ORAL LIQUID 20 MEQ/15 ML PO ONE (08:05)
[2023-10-30] MEDS: KCL 10 MEQ IVPB 10 MEQ/100 ML INFUS.BAG IVPB SCH (08:21)
[2023-10-30 08:38] LABS: CHLORIDE 105 mmol/L (98-107); HEMATOCRIT 26.2 % (32.4-45.2); HEMOGLOBIN 8.9 GM/dL (10.7-15.3); MCH 29.2 pg (25.7-33.7); MCHC 34.1 g/dl (32.0-36.0); MEAN CELL VOLUME 85.7 fl (80-96); MEAN PLT VOLUME 8.6 fl (7.5-11.1); PLATELET COUNT 311 10^3/uL (134-434); RBC 3.05 M/mm3 (3.60-5.2); SODIUM 135 mmol/L (136-145); WHITE BLOOD COUNT 17.4 K/mm3 (4.0-10.0)
[2023-10-30 08:39] LABS: ANION GAP 6 mmol/L (4-13); CALCIUM 7.8 mg/dL (8.5-10.1); CO2 24 mmol/L (21-32); POTASSIUM 2.9 mmol/L (3.5-5.1)
[2023-10-30 08:40] LABS: BLOOD UREA NITROGEN 12.6 mg/dL (7-18); GLUCOSE,RANDOM 75 mg/dL (74-106)
[2023-10-30 08:43] LABS: CREATININE 0.4 mg/dL (0.55-1.3)
[2023-10-30] MEDS: PANTOPRAZOLE SODIUM 40 MG VIAL IVPUSH SCH (09:54)
[2023-10-30 15:13] VITALS: RESP 18
[2023-10-31 08:11] LABS: HEMATOCRIT 30.5 % (32.4-45.2); HEMOGLOBIN 10.2 GM/dL (10.7-15.3); MCH 29.2 pg (25.7-33.7); MCHC 33.3 g/dl (32.0-36.0); MEAN CELL VOLUME 87.5 fl (80-96); MEAN PLT VOLUME 8.8 fl (7.5-11.1); PLATELET COUNT 409 10^3/uL (134-434); RBC 3.49 M/mm3 (3.60-5.2); RDW 16.3 % (11.6-15.6); WHITE BLOOD COUNT 23.7 K/mm3 (4.0-10.0)
[2023-10-31 08:17] LABS: POTASSIUM 3.2 mmol/L (3.5-5.1)
[2023-10-31 08:24] LABS: BLOOD UREA NITROGEN 9.6 mg/dL (7-18); CALCIUM 8.1 mg/dL (8.5-10.1)
[2023-10-31 08:27] LABS: CREATININE 0.3 mg/dL (0.55-1.3)
[2023-10-31] MEDS: TAMSULOSIN HCL 0.4 MG CAP PO SCH (10:31)
[2023-10-31] MEDS: ACETAMINOPHEN 1000 MG/100 ML BAG IVPB ONE (11:45)
[2023-10-31 20:36] VITALS: BP 131/71; PULSE 69; TEMP 98.4
== END 2023-10-31 20:30 | disposition hospice, inpatient (51) | DRG 853 ==
LOC: JER 07:31 → JERBED 15:09 → J4W 22:14
PROVIDERS: ADMIT Internal Medicine; ATTEND Internal Medicine
PROC: 30233N1 Transfusion of Nonautologous Red Blood Cells into Peripheral Vein, Percutaneous Approach (ICD-10-PCS; 2023-10-24)
PROC: 04QY0ZZ Repair Lower Artery, Open Approach (ICD-10-PCS; 2023-10-25)
PROC: 0W3L0ZZ Control Bleeding in Lower Back, Open Approach (ICD-10-PCS; 2023-10-25)
PROC: 0QB10ZZ Excision of Sacrum, Open Approach (ICD-10-PCS; principal; 2023-10-25 11:45)
PROC: 0W3P8ZZ Control Bleeding in Gastrointestinal Tract, Via Natural or Artificial Opening Endoscopic (ICD-10-PCS; 2023-10-29)
PROC: 05HD33Z Insertion of Infusion Device into Right Cephalic Vein, Percutaneous Approach (ICD-10-PCS; 2023-10-31)
DX: A41.9 Sepsis, unspecified organism (principal); K26.4 Chronic or unspecified duodenal ulcer with hemorrhage; L89.154 Pressure ulcer of sacral region, stage 4; N39.0 Urinary tract infection, site not specified; I50.32 Chronic diastolic (congestive) heart failure; M96.830 Postprocedural hemorrhage of a musculoskeletal structure following a musculoskeletal system procedure; E78.5 Hyperlipidemia, unspecified; K21.9 Gastro-esophageal reflux disease without esophagitis; Y83.8 Other surgical procedures as the cause of abnormal reaction of the patient, or of later complication, without mention of misadventure at the time of the procedure; I11.0 Hypertensive heart disease with heart failure
CPT/HCPCS: 0241U-QW; 36415; 36430; 71045-TC-FY; 80048; 80053; 81003; 82803; 82962; 83605; 83735; 84484; 85025; 85027; 85610; 86850; 86900; 86901; 86922; 87040; 87086; 88304-TC; 94760; 99291; E0186; P9038; P9058